=== PATIENT | male | born 1995 | race Caucasian/White ===

== ENCOUNTER 2018-08-22 16:24 | Emergency (ER) | payer MEDICAID, SELFPAY ==
[2018-08-22 16:31] VITALS: BP 154/96; PULSE 81; RESP 16; TEMP 37; O2SAT 95
--- NOTE | 2018-08-22 16:51 | DI.RAD_ITS ---
SYMPTOM/DIAGNOSIS: COUGH PA AND LATERAL CHEST: Comparison is made with 01/14/16. The heart is normal in size. The lungs are clear. The mediastinal structures and pleura appear intact. CONCLUSION: Normal chest.
--- NOTE | 2018-08-22 17:07 | ED.GENADUL_ITS ---
Discharge Plan Disposition Patient Disposition: HOME Discharge Details Chief Complaint: RespSymp Clinical Impression: Cough Primary Care Provider: NONE,NONE ED Provider: Ilan Farrell Home Meds and New Rx's Prescriptions: Continue Ibuprofen [Motrin Ib] 200 MG Tablet 600 mg PO Q6H 5 Days Qty: 60 RF: 0 Changed acetaminophen [Mapap Extra Strength] 500 MG tablet 500 mg PO Q6H 5 Days Qty: 60 RF: 0 Discontinued ibuprofen 200 MG tablet 200 mg PO DAILY RF: 0 Discharge Instructions Additional Instructions: Please drink plenty of fluids to stay hydrated and allow for plenty of rest. Please contact your primary care physician to arrange follow-up. Return to the ER for any worsening or new concerning symptoms. Stand Alone Forms: Work Release Medical Decision Making 22-year-old male here with cough, rhinorrhea and myalgias since yesterday. Saturating well in no respiratory distress. Lungs clear to auscultation. cxr reviewed and interpreted by me: No acute cardiopulmonary disease noted. Interpreted by radiology: negative. Suspect URI. Supportive care recommended. He was encouraged to drink plenty of fluids and offer plenty of rest. Patient was advised to return to the ER should have any worsening or new concerning symptom HPI General Mode of arrival: ambulatory . Date/Time Provider Initiated Documentation: 08/22/18 16:37 . Limitations to Documentation: no limitations . Information obtained by: patient . HPI Narrative: 22-year-old male presents with chief complaint of cough. Patient notes the cough started last night and has persisted today. Cough is moderate. Intermittently productive of clear phlegm. No associated fever. He does have associated body aches and runny nose. No shortness of breath. He does have some pleuritic chest discomfort that he notes is from the excessive coughing. There is some individuals at work with URI symptoms. Related Data Home Medications Medication Instructions Recorded Confirmed Ibuprofen [Motrin Ib] 600 mg PO Q6H 5 Days #60 tablet 06/07/18 08/22/18 acetaminophen [Mapap Extra 500 mg PO Q6H 5 Days #60 tab 08/22/18 08/22/18 Strength] Previous Rx's Medication Instructions Recorded Ibuprofen [Motrin Ib] 600 mg PO Q6H 5 Days #60 tablet 06/07/18 acetaminophen [Mapap Extra 500 mg PO Q6H 5 Days #60 tab 08/22/18 Strength] Allergies Allergy/AdvReac Type Severity Reaction Status Date / Time No Known Allergies Allergy Unverified 08/22/18 16:34 General Stated Complaint: RespSymp LEV: 4 Review of Systems Review of Systems All systems reviewed & are unremarkable except as noted in HPI and below ENT Reports nasal congestion Cardiovascular Denies dyspnea Respiratory Reports cough and Denies dyspnea Musculoskeletal Reports myalgias PFSH Social History Smoking/Tobacco Use Status: Former Tobacco Use Exam Const General: cooperative, no acute distress, well developed and acute distress Orientation: alert and awake Limitations: mental status not altered HENMT Head: normal to inspection and normocephalic Face and sinus: other Mouth: moist mucous membranes Throat: posterior oropharynx normal, uvula midline, posterior oropharynx abnormal and no uvular edema Eyes General: appearance normal, both eyes and all related structures Conjunctivae: conjunctivae normal EOM: EOM intact bilaterally Neck Neck: trachea midline, supple and no lymphadenopathy noted Resp Effort & Inspection: normal respiratory effort, cough, not labored and no respiratory distress Auscultation: clear to auscultation bilaterally, no rales, no rhonchi and no wheezes Cardio Jugular venous pressure: no JVD Rate: regular rate Rhythm: regular rhythm Heart Sounds: S1 normal, S2 normal, no gallops, no murmurs and no rubs GI Palpation: soft and nontender Skin General skin exam: no rashes or lesions noted and dry skin Other: warm Neuro General: alert, awake and oriented x3 Extrem General: clubbing, cyanosis or edema noted Psych Appearance: grossly normal Affect: normal affect Course Vital Signs Temperature 37 C 08/22/18 16:31 Pulse 81 08/22/18 16:31 Respiratory Rate 16 08/22/18 16:31 Blood Pressure 154/96 H 08/22/18 16:31 Pulse Oximetry 95 08/22/18 16:31 Temperature 37 C 08/22/18 16:31 Temperature Source Skin 08/22/18 16:31 Pulse 81 08/22/18 16:31 Respiratory Rate 16 08/22/18 16:31 Respiratory Effort 08/22/18 16:34 Blood Pressure 154/96 H 08/22/18 16:31 Pulse Oximetry 95 08/22/18 16:31 Oxygen Delivery Method Room Air 08/22/18 16:31 Oxygen Flow Rate 0 08/22/18 16:31 Pain Level 8 08/22/18 16:31
--- NOTE | 2018-08-22 17:14 | DI.VRAD_ITS ---
EXAM: XR Chest, 2 Views CLINICAL HISTORY: 22 years old, male; Signs and symptoms; Cough TECHNIQUE: Frontal and lateral views of the chest. COMPARISON: CR CHEST 2 VIEWS PA,LAT 12/21/2012 12:38 PM FINDINGS: Lungs: Unremarkable. No consolidation. Pleural space: Unremarkable. No pneumothorax. Heart: Unremarkable. No cardiomegaly. Mediastinum: Unremarkable. Bones/joints: Unremarkable. IMPRESSION: Normal chest x-rays. Dictated and Authenticated by: Geronimo Glass MD. Ordering:TIMOTEO CONKLIN MD
== END 2018-08-22 17:30 | disposition home or self-care (01) ==
PROVIDERS: Emergency Provider Student in an Organized Health Care Education/Training Program
DX: R05 Cough (principal); M79.1 Myalgia
CPT/HCPCS: 99283; 71046

== ENCOUNTER 2018-09-04 21:15 | Emergency (ER) | payer MEDICAID, SELFPAY ==
[2018-09-04 21:20] VITALS: BP 118/65; PULSE 84; RESP 16; TEMP 36.3; O2SAT 97
[2018-09-04 23:30] VITALS: BP 118/65; PULSE 84; RESP 16; TEMP 36.3; O2SAT 97
--- NOTE | 2018-09-05 01:46 | W.ED.GENAD ---
Discharge Plan Disposition Patient Disposition: HOME Condition: Good Discharge Details Chief Complaint: EarProblem Clinical Impression: Cerumen impaction, Bilateral acute otitis media Primary Care Provider: Elizabeth Green ED Provider: Niraj Davis Home Meds and New Rx's Prescriptions: New amoxicillin 875 mg tablet 875 mg PO BID Qty: 20 RF: 0 No Action Ibuprofen [Motrin Ib] 200 MG Tablet 600 mg PO Q6H 5 Days Qty: 60 RF: 0 acetaminophen [Mapap Extra Strength] 500 MG tablet 500 mg PO Q6H 5 Days Qty: 60 RF: 0 Discharge Instructions Instructions: Cerumen Impaction (ED), Otitis Media (ED) Additional Instructions: Please take the antibiotic as directed. If you notice any worsening of your symptoms, or any new symptoms such as vomiting, diarrhea, fever, chills, shortness of breath, chest pain, numbness, weakness, or fainting , please return immediately to the emergency department for reevaluation. Please follow up with your primary care provider as soon as possible for reassessment and reevaluation. As always, it was a pleasure participating in your medical care today. Referrals: Elizabeth Green [Primary Care Provider] - Discharge Data Discharge Date/Time-TO BE ENTERED AT DEPARTURE: 09/04/18 22:37 Medical Decision Making This is a 22-year-old male with no medical history who presents today for evaluation of bilateral ear pain and decreased hearing. Physical exam demonstrates bilateral cerumen impaction. Cerumen was removed bilaterally with gentle suction device. After removal of the cerumen there was evidence of bilateral otitis media. No evidence of rupture or drainage. Patient will be started on amoxicillin. He has significant improvement of his symptoms after the removal of the cerumen. Patient will be discharged home with antibiotic. We discussed red flags for which to return the patient I have extensively reviewed the treatment plan and discharge instructions with the patient. I have addressed all patient concerns at this time. The patient was made aware of what symptoms to monitor for that would warrant a return to the emergency department. Discussed the plan with the patient, they demonstrate verbal understanding and agreement with our assessment and plan at this time. HPI General Date/Time Provider Initiated Documentation: 09/04/18 22:20. HPI Narrative: This is a 22-year-old male with no significant past medical history who presents today for evaluation of ear pain. The patient states that over the last few days he has noticed moderate pain in his urine difficulty hearing. He tried to use Q-tips to get out any wax but was unable to. He presents today for evaluation of this. He denies any fevers, chills, chest pain or shortness of breath. He does complain of congestion, runny nose, and mild upper respiratory symptoms over the last few days which have resolved but still have persistent ear symptoms. He denies any recent surgeries or trauma to his ear. He has no other complaints at this time. Related Data Home Medications Medication Instructions Recorded Confirmed Ibuprofen [Motrin Ib] 600 mg PO Q6H 5 Days #60 tablet 06/07/18 08/22/18 acetaminophen [Mapap Extra 500 mg PO Q6H 5 Days #60 tab 08/22/18 08/22/18 Strength] amoxicillin 875 mg PO BID #20 tab 09/04/18 Previous Rx's Medication Instructions Recorded Ibuprofen [Motrin Ib] 600 mg PO Q6H 5 Days #60 tablet 06/07/18 acetaminophen [Mapap Extra 500 mg PO Q6H 5 Days #60 tab 08/22/18 Strength] amoxicillin 875 mg PO BID #20 tab 09/04/18 Allergies Allergy/AdvReac Type Severity Reaction Status Date / Time No Known Allergies Allergy Unverified 08/22/18 16:34 General Stated Complaint: EarProblem LEV: 4 Review of Systems Review of Systems All systems reviewed & are unremarkable except as noted in HPI and below PFSH Social History Smoking/Tobacco Use Status: Former Tobacco Use Exam Narrative Exam Narrative: 1.Const: Well-nourished, Well-developed, appearing stated age 2.Eyes: PERRL, no conjunctival injection, and symmetrical lids. 3.ENT: Atraumatic external nose and ears. Moist MM. Neck: Symmetric, trachea midline, No thyromegaly. Patient demonstrates notable cerumen impaction in each ear bilaterally. After cerumen was eventually removed there was evidence of otitis media bilaterally as well. No evidence of rupture. No signs of purulent drainage. Erythema and some purulent fluid noted posterior to the tympanic membranes bilaterally 4.CVS: +S1/S2, No murmurs or gallops. Peripheral pulses 2+ and equal in all extremities. Brisk capillary refill in all extremities. 5.RESP: Unlabored respiratory effort. Clear to auscultation bilaterally. No wheezes rales or rhonchi 6.GI: Soft, Nontender/Nondistended, No hepatosplenomegaly. No guarding or rebound. 7.MSK: Normocephalic/Atraumatic, Extremities w/o deformity or ttp No cyanosis or clubbing, Normal movement of all extremities 8.Skin: Warm, Dry. No rashes or lesions. 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 Sensation grossly intact, no focal neurologic deficits. 10.Psych: (AAO) x3. Appropriate mood and affect Course Vital Signs Temperature 36.3 C L 09/04/18 21:20 Pulse 84 09/04/18 21:20 Respiratory Rate 16 09/04/18 21:20 Blood Pressure 118/65 09/04/18 21:20 Pulse Oximetry 97 09/04/18 21:20 Temperature 36.3 C L 09/04/18 21:20 Pulse 84 09/04/18 21:20 Respiratory Rate 16 09/04/18 21:20 Respiratory Effort Non-Labored 09/04/18 21:43 Blood Pressure 118/65 09/04/18 21:20 Blood Pressure Position Sitting 09/04/18 21:20 Pulse Oximetry 97 09/04/18 21:20 Oxygen Delivery Method Room Air 09/04/18 21:20 Oxygen Flow Rate 0 09/04/18 21:20 Pain Level 0 09/04/18 21:44
== END 2018-09-04 22:37 | disposition home or self-care (01) ==
PROVIDERS: Emergency Provider Student in an Organized Health Care Education/Training Program; PCP Nurse Practitioner Family
DX: H66.93 Otitis media, unspecified, bilateral (principal); H61.23 Impacted cerumen, bilateral
CPT/HCPCS: 99283

== ENCOUNTER 2018-12-17 13:41 | Emergency (ER) | payer MEDICAID, SELFPAY ==
[2018-12-17 13:47] VITALS: BP 148/99; PULSE 99; RESP 18; TEMP 37.5; O2SAT 95
--- NOTE | 2018-12-17 14:33 | ED.GENADUL_ITS ---
Discharge Plan Disposition Patient Disposition: HOME Condition: Stable Discharge Details Chief Complaint: RespSymp Clinical Impression: URI (upper respiratory infection) Primary Care Provider: Elizabeth Green ED Provider: Xu Greer Home Meds and New Rx's Prescriptions: New benzonatate 200 mg capsule 200 mg PO TID PRN (Reason: cough) Qty: 30 RF: 0 Continued Excedrin Extra Strength 250-250-65 mg Tablet 2 tab PO Q6H PRNRF: 0 Ibuprofen [Motrin Ib] 200 MG Tablet 600 mg PO Q6H 5 Days Qty: 60 RF: 0 acetaminophen [Mapap Extra Strength] 500 MG tablet 500 mg PO Q6H 5 Days Qty: 60 RF: 0 Discharge Instructions Instructions: Upper Respiratory Infection (ED) Additional Instructions: Continue well-hydrated and get plenty of rest over the weekend. If you develop a new fever or have any significant worsening of symptoms feel free to return the emergency department or follow-up with your primary care provider for reassessment. You may continue to take ejii-ncf-[id number] pain medication along with cough and cold medication for your symptoms Stand Alone Forms: Work Release Referrals: Elizabeth Green [Primary Care Provider] - (As needed for reassessment or if not improving) Discharge Data Discharge Date/Time-TO BE ENTERED AT DEPARTURE: 12/17/18 14:51 Medical Decision Making Patient presenting the emergency department for flulike symptoms for the past 4 days. Patient has not been using jkqy-tua-[id number] medications for his symptoms. Patient just was concerned due to the persistence of his cold-like illness. Patient denies any nausea vomiting, nuchal rigidity, dyspnea, or difficulty breathing. Patient has no signs of meningitis, peritonsillar retropharyngeal abscess, pneumonia, emergent systemic illness. Patient's exam is consistent w ith viral URI and no worrisome findings noted. Given that patient has had symptoms greater than 48 hours I do not see benefit of testing for influenza given that he is young healthy and otherwise stable nontoxic in appearance. Patient was prescribed Tessalon Perles and encouraged to use [id number] symptomatic medications. Patient was given a work note and informed he should rest stay well-hydrated and follow-up with primary care provider or return for any significant worsening symptoms. After discussion of diagnosis and plan of care patient has no further needs, questions, or concerns and states clear understanding to return to the emergency department for any worsening symptoms. HPI General Mode of arrival: ambulatory . Date/Time Provider Initiated Documentation: 12/17/18 14:16 . Limitations to Documentation: no limitations . Information obtained by: patient . History of Present Illness 23 year old M presents to the emergency department with the chief complaint of Flulike illness, described as moderate, with intensity rated at 8. Quality is described as aching, and is localized to the head (Along with generalized body). Patient started experiencing this day(s) (4) and it has been constant. No relieving factors improve symptom(s), No exacerbating factors reported . Patient did receive the following treatments prior to arrival, none Related Data Home Medications Medication Instructions Recorded Confirmed Ibuprofen [Motrin Ib] 600 mg PO Q6H 5 Days #60 tablet 06/07/18 12/17/18 acetaminophen [Mapap Extra 500 mg PO Q6H 5 Days #60 tab 08/22/18 12/17/18 Strength] Excedrin Extra Strength 2 tab PO Q6H PRN 12/17/18 12/17/18 benzonatate 200 mg PO TID PRN #30 cap 12/17/18 Previous Rx's Medication Instructions Recorded Ibuprofen [Motrin Ib] 600 mg PO Q6H 5 Days #60 tablet 06/07/18 acetaminophen [Mapap Extra 500 mg PO Q6H 5 Days #60 tab 08/22/18 Strength] benzonatate 200 mg PO TID PRN #30 cap 12/17/18 Allergies Allergy/AdvReac Type Severity Reaction Status Date / Time No Known Allergies Allergy Unverified 12/17/18 13:53 General Stated Complaint: RespSymp LEV: 3 Review of Systems Constitutional Reports chills, Reports difficulty sleeping (Due to coughing), Reports fatigue, Reports fever(s), Reports headache(s) and Reports malaise ENT Reports as per HPI, Reports otalgia, Reports headache(s), Denies hoarseness, Reports nasal congestion, Reports sinus pressure and Reports sore throat Cardiovascular Denies dyspnea Respiratory Reports cough, Denies hemoptysis, Denies pain with cough, Denies dyspnea and Denies wheezing Gastrointestinal Reports diarrhea, Denies nausea and Denies vomiting Musculoskeletal Denies joint swelling Integumentary/Breasts Denies rash Neurologic Reports headache(s) Endocrine Reports fatigue Allergic/Immunologic Denies wheezing [facility] Social History Smoking/Tobacco Use Status: Former Tobacco Use Exam Const General: cooperative, comfortable and no acute distress Orientation: alert, awake and oriented x3 HENMT Head: normal to inspection Ears: hearing grossly normal bilaterally, external ears normal and TM's normal b ilaterally Face and sinus: normal facial exam, sinuses nontender and face symmetric Mouth: oral mucosae normal Throat: posterior oropharynx normal, uvula midline and abnormal tonsil bilaterally erythema (mild); no exudates and no hypertrophy Eyes General: appearance normal, both eyes and all related structures Conjunctivae: conjunctivae normal Sclera: sclerae normal Neck Neck: normal visual inspection, full ROM, no lymphadenopathy, meningismus present and no JVD Resp Effort & Inspection: normal respiratory effort, able to speak in complete sentences, no audible wheezes, cough Quality of cough: actively coughing and not labored Auscultation: clear to auscultation bilaterally Cardio Rate: regular rate Rhythm: regular rhythm Heart Sounds: S1 normal and S2 normal Skin General skin exam: no rashes or lesions noted and dry skin Rashes: no rashes Neuro General: alert, awake, oriented x3 and gait normal Course Vital Signs Temperature 37.5 C 12/17/18 13:47 Pulse 99 H 12/17/18 13:47 Respiratory Rate 18 12/17/18 13:47 Blood Pressure 148/99 H 12/17/18 13:47 Pulse Oximetry 95 12/17/18 13:47 Temperature 37.5 C 12/17/18 13:47 Temperature Source Oral 12/17/18 13:47 Pulse 99 H 12/17/18 13:47 Respiratory Rate 18 12/17/18 13:47 Respiratory Effort Non-Labored 12/17/18 13:52 Blood Pressure 148/99 H 12/17/18 13:47 Blood Pressure Position Sitting 12/17/18 13:47 Pulse Oximetry 95 12/17/18 13:47 Oxygen Delivery Method Room Air 12/17/18 13:47 Oxygen Flow Rate 0 12/17/18 13:47 Pain Level 9 12/17/18 13:47
== END 2018-12-17 14:51 | disposition home or self-care (01) ==
LOC: ER 12-18 00:16
PROVIDERS: Emergency Provider Nurse Practitioner Family; PCP Nurse Practitioner Family
DX: J06.9 Acute upper respiratory infection, unspecified (principal); Z87.891 Personal history of nicotine dependence
CPT/HCPCS: 99283

== ENCOUNTER 2021-06-06 11:32 | Emergency (ER) | payer SELFPAY ==
[2021-06-06 11:41] VITALS: BP 134/79; PULSE 65; TEMP 36.7; O2SAT 96
[2021-06-06] MEDS: Carbamide Peroxide 15 ML BTL AU (12:19)
--- NOTE | 2021-06-06 12:59 | W.ED.GENAD ---
Discharge Plan Disposition Patient Disposition: HOME Condition: Stable Discharge Details Clinical Impression: Otitis media, Impacted cerumen, right ear Primary Care Provider: Elizabeth Green ED Provider: Prosper Seth Home Meds and New Rx's Prescriptions: New amoxicillin 875 mg tablet 875 mg PO BID Qty: 20 RF: 0 Continued Excedrin Extra Strength 250-250-65 mg Tablet 2 tab PO Q6H PRNRF: 0 Ibuprofen [Motrin Ib] 200 MG Tablet 600 mg PO Q6H 5 Days Qty: 60 RF: 0 acetaminophen [Mapap Extra Strength] 500 MG tablet 500 mg PO Q6H 5 Days Qty: 60 RF: 0 Discharge Instructions Instructions: Ear Infection (ED) Additional Instructions: Amoxicillin as directed. Acjs-mam-ahfseux eardrops to the prevent earwax buildup as directed. [id number]-[id number] Tylenol and/or Motrin as directed for discomfort. Please watch for new or worsening symptoms and return to the ER for any concerns. Medical Decision Making 25-year-old gentleman presents with dull ear pressure on the right side, hearing loss, concern for excessive wax. Initial evaluation revealed cerumen in the right ear canal, unable to visualize the TM. Please see the procedure documentation, wax was removed without difficulty. Upon reevaluation his TM actually appears consistent with otitis media. I would expect there to be mild irritation after the irrigation but this is more consistent with an acute otitis media. Will give a single dose of amoxicillin here, provide a prescription, we discussed earwax routine at home to help decrease buildup, he will use [id number] Tylenol and/or Motrin as directed for discomfort. Patient is comfortable this plan and has no additional questions or concerns Medical Records Medical records reviewed: Yes I reviewed the patient's medical records. HPI General Mode of arrival: ambulatory. Date/Time Provider Initiated Documentation: 06/06/21 11:47. Limitations to Documentation: no limitations. Information obtained by: patient. HPI Narrative: This is a 25-year-old male, denies any significant past medical history, presenting to the ER stating that he woke up this morning with difficulty hearing from his right ear. He reports that he has had issues with wax buildup in both of his ears in the past, felt as though his ear was full yesterday, and before bed and upon waking this morning he did use eardrops in his right ear. He reports that his ear feels full and achy but not necessarily painful, denies any discharge. Denies fever, any symptoms in his left ear, sore throat, nasal congestion with cough, neck pain. Patient has no additional concerns or questions at this time. Related Data Home Medications Medication Instructions Recorded Confirmed Ibuprofen [Motrin Ib] 600 mg PO Q6H 5 Days #60 tablet 06/07/18 06/06/21 acetaminophen [Mapap Extra 500 mg PO Q6H 5 Days #60 tab 08/22/18 06/06/21 Strength] Excedrin Extra Strength 2 tab PO Q6H PRN 12/17/18 06/06/21 amoxicillin 875 mg PO BID #20 tab 06/06/21 Previous Rx's Medication Instructions Recorded Ibuprofen [Motrin Ib] 600 mg PO Q6H 5 Days #60 tablet 06/07/18 acetaminophen [Mapap Extra 500 mg PO Q6H 5 Days #60 tab 08/22/18 Strength] amoxicillin 875 mg PO BID #20 tab 06/06/21 Allergies Allergy/AdvReac Type Severity Reaction Status Date / Time No Known Allergies Allergy Unverified 06/06/21 11:45 General Stated Complaint: EarProblem LEV: 4 Review of Systems Constitutional Constitutional: Denies fever(s) and Denies headache(s) ENT Ears, Nose, Mouth, and Throat: Denies headache(s), Denies mouth pain and Denies sore throat Neurologic Neurologic: Denies headache(s) [facility] Social History Smoking/Tobacco Use Status: Former Tobacco Use Smoking risk assessment performed?: Yes Alcohol Intake: never Drug use: Occasionally Substance use type: marijuana Do you feel safe at home: Yes Do you feel safe in your relationship?: Yes Exam Const General: cooperative, healthy appearing, comfortable and no acute distress Orientation: alert and awake [facility] Head: normal to inspection, normocephalic and atraumatic Ears: TM normal on the left, mastoids normal, no periauricular adenopathy, EAC abnormal excessive cerumen on the right and unable to visualize TM on the right Face and sinus: normal facial exam Mouth: moist mucous membranes Throat: posterior oropharynx normal Eyes General: appearance normal, both eyes and all related structures Conjunctivae: conjunctivae normal Neck Neck: normal visual inspection, full ROM, no lymphadenopathy, trachea midline, supple and nontender Resp Effort & Inspection: normal respiratory effort and able to speak in complete sentences Skin General skin exam: no rashes or lesions noted Neuro General: patient alert, patient awake, moves all extremities and no focal motor deficits Sensory Exam: no sensory deficits noted Psych Appearance: grossly normal Mental Status: mental status grossly normal Course Vital Signs Vital signs: Vital Signs Temperature 36.7 C 06/06/21 11:41 Pulse 65 06/06/21 11:41 Blood Pressure 134/79 06/06/21 11:41 Pulse Oximetry 96 06/06/21 11:41 Temperature 36.7 C 06/06/21 11:41 Temperature Source Temporal Artery Scan 06/06/21 11:41 Pulse 65 06/06/21 11:41 Respiratory Effort Non-Labored 06/06/21 11:44 Blood Pressure 134/79 06/06/21 11:41 Blood Pressure Position Sitting 06/06/21 11:41 Pulse Oximetry 96 06/06/21 11:41 Oxygen Delivery Method Room Air 06/06/21 11:41 Oxygen Flow Rate 0 06/06/21 11:41 Pain Level 3 06/06/21 11:46 Procedures Ear Wax Removal Right Ear: Cerumenolytic Used: Cerumenex Results: Re-examined: cerumen removed completely TM Visible: TM(s) erythematous (Loss of landmarks, mild bulging) and perforation in right ear Ear Canal: atraumatic Patient Tolerated Procedure: well Complications: no problems Technique: ear canal irrigated
[2021-06-06] MEDS: Amoxicillin 875 MG TAB PO (13:30)
[2021-06-06 13:38] VITALS: BP 145/71; PULSE 58; RESP 18; TEMP 36.7; O2SAT 97
== END 2021-06-06 13:58 | disposition home or self-care (01) ==
PROVIDERS: Emergency Provider Physician Assistant; PCP Nurse Practitioner Family
DX: H66.91 Otitis media, unspecified, right ear (principal); H61.21 Impacted cerumen, right ear; H72.91 Unspecified perforation of tympanic membrane, right ear
CPT/HCPCS: 99283

== ENCOUNTER 2022-01-24 13:35 | Emergency (ER) | payer SELFPAY ==
--- NOTE | 2022-01-24 14:48 | ED.GENADUL_ITS ---
Discharge Plan Disposition Patient Disposition: HOME Condition: Improving Discharge Details Clinical Impression: Abdominal pain, vomiting, and diarrhea Primary Care Provider: Elizabeth Green ED Provider: Cassandra Mendoza Home Meds and New Rx's Prescriptions: New famotidine [Pepcid] 20 mg tablet 20 mg PO DAILY Qty: 14 0RF dicyclomine 20 mg tablet 20 mg PO TID PRN (Reason: abdominal pain) Qty: 10 0RF ondansetron 4 mg tablet,disintegrating 4 mg PO TID PRN (Reason: nausea and vomiting) Qty: 6 0RF Discharge Instructions Instructions: Acute Nausea and Vomiting (ED), Acute Diarrhea (ED), Abdominal Pain (ED) Additional Instructions: Your lab work and imaging today is reassuring and shows no evidence of acute concerning or significant findings. Your presentation may be due to an acute viral illness which may be self-limiting and may resolve in the next 1 to 2 days. Drink plenty of fluids and get plenty of rest. Alternate tylenol and motrin as needed and directed for pain. Take the Zofran as needed and directed for nausea and vomiting. Take the Pepcid once daily for the next 2 weeks. Take the Bentyl as needed and directed for abdominal pain. Follow-up with your primary care doctor in 1 week. Return to the emergency department with any worsening or new concerning symptoms. Stand Alone Forms: Work Release Discharge Data Discharge Date/Time-TO BE ENTERED AT DEPARTURE: 01/24/22 18:26 Discharge Physician: Cassandra Mendoza Medical Decision Making 26-year-old male with a history of morbid obesity presents with vomiting, diarrhea and abdominal pain since yesterday, worse today. Blood pressure and heart rate elevated. He is afebrile. He appears uncomfortable and tearful while palpating his abdomen but he is nontoxic- appearing. His abdomen is soft and diffusely tender, but worse in the right lower quadrant, left side of his abdomen as well as upper quadrants. Differential diagnosis includes gastroenteritis, colitis, gastritis, Covid, appendicitis, biliary colic, cholecystitis, pancreatitis, etc. We will place an IV, bolus IV fluids, screening labs, gallbladder ultrasound, CT abdomen/pelvis considering his significant pain and will give a dose of IV Toradol and Zofran and reassess. Labs and imaging reviewed. White blood cell count 13. Hemoglobin 17, may be hemoconcentration secondary to dehydration. Normal electrolytes. Lipase normal. Ultrasound and CT negative for acute findings. Patient informed that his imaging noted hepatic steatosis which may be diet related and to limit high trans fat/cholesterol foods as much as possible. He denies any significant alcohol use. Patient reassessed and he feels much better and was able to take p.o. and feels comfortable going home. He was given Zofran to go and prescriptions for Bentyl, Pepcid and Zofran provided. Advised to follow up with the primary care doctor for re-evaluation. Usual and customary return precautions given prior to discharge. Medical Records Medical records reviewed: Yes I reviewed the patient's medical records. Imaging Data Radiologic Study: Radiologist's impression: CT ABDOMEN ? PELVIS W CLINICAL HISTORY: ? diffuse abd pain, worse in RLQ/LLQ/epigastric. ? TECHNIQUE:? Imaging Protocol: Axial computed tomography images with coronal and sagittal reformatted images were created and reviewed CONTRAST MATERIAL:? Intravenous: Omnipaque 100cc Oral: None COMPARISON:? US US ABDOMEN LIMITED from 01/24/2022 FINDINGS: VISUALIZED LUNG BASES: No nodules nor pleural effusions evident.? ABDOMEN: There is no ascites. LIVER: Liver is hypodense implying steatosis.? However, there are no discrete focal hepatic lesions nor dilatation of intrahepatic ducts.? GALLBLADDER/BILIARY: No obvious gallbladder pathology.? CBD is not dilated. PANCREAS: No evidence of pancreatic mass nor dilatation of the pancreatic duct.? SPLEEN: Spleen size upper normal.? No splenic lesions.? Splenic and portal veins are patent. ADRENALS: There are no significant adrenal masses. KIDNEYS:No cysts evident.? No solid renal masses.? No calculi nor hydronephrosis.. ABDOMINAL AORTA: Abdominal aorta is not enlarged. LYMPH NODES:There is no retroperitoneal nor paraaortic adenopathy. ABDOMINAL WALL: No evidence of significant anterior abdominal wall nor inguinal hernia. GI: There is no evidence of bowel obstruction, free air, nor abscess. PELVIS:? GI: No evidence of appendicitis.No evidence of sigmoid diverticulitis. LYMPH NODES: There is no intrapelvic nor inguinal adenopathy. REPRODUCTIVE: Prostate size normal.? Seminal vesicles unremarkable. URINARY BLADDER: Unremarkable. OSSEOUS: No significant osseous lesions. IMPRESSION: 1. No acute findings in the abdomen and pelvis. 2. Hepatic steatosis but no discrete focal hepatic lesions. 3. No evidence of appendicitis, diverticulitis, nor cholecystitis. 4. No bowel obstruction.? No ascites. US ABDOMEN LIMITED CLINICAL HISTORY:? RUQ/LUQ/epigastric pain, obese, r/o cholecystitis TECHNIQUE:? Ultrasound abdomen performed using standard protocol. COMPARISON:? CT scan from today FINDINGS: There is no ascites evident. LIVER: Liver is hyperechoic indicating steatosis.? No obvious discrete focal hepatic lesions evident. GALLBLADDER/BILIARY: There are no gallstones. No gallbladder wall edema nor pericholecystic fluid. The common hepatic duct isnot dilated, measuring 5mm at the level of lamberto hepatis. PANCREAS: There is no evidence of pancreatic mass nor dilatation of the pancreatic duct. RIGHT KIDNEY:No evidence of solid mass, calculus, nor hydronephrosis. No cortical cysts evident. ABDOMINAL AORTA AND IVC: Visualized portions exhibit normal caliber. IMPRESSION: 1.? No evidence of cholelithiasis nor dilatation of the biliary tree.? 2.? Hepatic steatosis.? Correlation with appropriate blood blood work recommended. 3.? There is no ascites. Lab Data Lab results reviewed: Yes I reviewed the patient's lab results. Labs: Laboratory Tests Range/Units 01/24/22 01/24/22 15:24 15:24 WBC (4.4-10.8) 10^3/uL 13.28 H RBC (4.36-5.78) 10^6/uL 6.12 H Hgb (13.5-17.5) g/dL 17.6 H Hct (40.0-50.0) % 50.8 H MCV (80-95) fL 83.0 MCH (27.0-33.0) pg 28.8 MCHC (32.0-36.0) % 34.6 RDW (11.8-14.1) % 12.0 Plt Count (130-400) 10^3/uL 304 MPV (8.0-11.0) fL 10.0 Immature Gran % 0.2 Neutrophils % 86.3 Lymphocytes % 5.7 Monocytes % 5.6 Eosinophils % 2.0 Basophils % 0.2 Nucleated RBC % % 0 Absolute Neutrophils (1.2-6.7) 10^3/uL 11.46 H Absolute Lymphocytes (1.2-3.4) 10^3/uL 0.76 L Absolute Monocytes (0.1-0.8) 10^3/uL 0.74 Absolute Eosinophils (0.0-0.7) 10^3/uL 0.27 Absolute Basophils (0.0-0.2) 10^3/uL 0.03 Sodium (136-145) mmol/L 141 Potassium (3.5-5.1) mmol/L 4.1 Chloride (98-107) mmol/L 104 Carbon Dioxide (21.0-32.0) mmol/L 26.8 Anion Gap (3-11) mmol/L 10.2 BUN (7-18) mg/dL 13 Creatinine (0.70-1.30) mg/dL 0.8 Estimated GFR/1.73 m2 (mL/min/1.73m2) >= 60.00 Glucose (74-106) mg/dL 118 H Calcium (8.5-10.1) mg/dL 9.1 Total Bilirubin (0.2-1.0) mg/dL 0.6 AST (15-37) U/L 30 ALT (16-63) U/L 56 Alkaline Phosphatase (46-116) U/L 122 H Total Protein (6.4-8.2) g/dL 8.6 H Albumin (3.4-5.0) g/dL 4.2 Lipase (73-393) U/L 54 HPI General Mode of arrival: ambulatory . Date/Time Provider Initiated Documentation: 01/24/22 14:18 . Limitations to Documentation: no limitations . Information obtained by: patient . HPI Narrative: Patient is a 26-year-old male with a history of morbid obesity presents with abdominal pain, vomiting and diarrhea since yesterday, worse today. Patient states his pain feels like pressure throughout his abdomen, but without radiation or known aggravating or alleviating factors. Patient states his pain was intermittent yesterday and has been constant since this morning. He states the pain is worse in the left side of his abdomen. He has had diminished appetite today and has only drank Coke. He states his last meal was a peanut butter and jelly sandwich last night. He states he vomited 3 times today which was initially yellow and now clear. He states he has had at least 10 episodes of watery brown and loose stool but denies any hematemesis or hematochezia. He admits to loss of sense of smell but denies any loss of sense of taste. He does admit to a mild dry cough. He states he is fully vaccinated for COVID including a booster and denies any known exposure to coronavirus. He denies any known fever, chest pain, difficulty breathing, urinary symptoms. Related Data Home Medications Medication Instructions Recorded Confirmed dicyclomine 20 mg tablet 20 mg PO TID PRN #10 tab 01/24/22 famotidine 20 mg tablet (Pepcid) 20 mg PO DAILY #14 tab 01/24/22 ondansetron 4 mg disintegrating 4 mg PO TID PRN #6 tab 01/24/22 tablet Previous Rx's Medication Instructions Recorded dicyclomine 20 mg tablet 20 mg PO TID PRN #10 tab 01/24/22 famotidine 20 mg tablet (Pepcid) 20 mg PO DAILY #14 tab 01/24/22 ondansetron 4 mg disintegrating 4 mg PO TID PRN #6 tab 01/24/22 tablet Allergies Allergy/AdvReac Type Severity Reaction Status Date / Time No Known Allergies Allergy Unverified 01/24/22 14:51 General Stated Complaint: Abd Prob LEV: 4 Review of Systems All systems reviewed & are unremarkable except as noted in HPI and below Constitutional Constitutional: Reports as per HPI, Denies chills, Denies excessive sweating, Denies fatigue, Denies fever(s) and Reports poor appetite Eyes Eyes: Denies blurry vision ENT Ears, Nose, Mouth, and Throat: Denies dizziness, Denies sore throat and Denies t hroat swelling Cardiovascular Cardiovascular: Denies chest pain and Denies dyspnea Respiratory Respiratory: Reports cough and Denies dyspnea Gastrointestinal Gastrointestinal: Reports abdominal pain, Reports diarrhea and Reports vomiting Genitourinary Genitourinary: Denies hematuria and Denies dysuria Musculoskeletal Musculoskeletal: Denies back pain and Denies numbness Integumentary/Breasts Skin/Breast: Denies lesions and Denies rash Neurologic Neurologic: Denies behavioral changes, Denies confusion, Denies dizziness, Denies localized weakness and Denies numbness Psychiatric Psychiatric: Denies behavioral changes, Denies confusion and Denies depression Endocrine Endocrine: Denies excessive sweating and Denies fatigue Hematologic/Lymphatic Hematologic/Lymphatic: Denies easy bruising and Denies lymphadenopathy Allergic/Immunologic Allergic/Immunologic: Denies throat swelling PFSH All Active Problems (Updated 01/24/22 @ 18:09 by Cassandra Mendoza DO) Otitis media (Acute) Impacted cerumen, right ear (Acute) Abdominal pain, vomiting, and diarrhea (Acute) Social History Smoking/Tobacco Use Status: Former Tobacco Use Smoking risk assessment performed?: Yes Alcohol Intake: never Drug use: Daily Substance use type: marijuana Do you feel safe at home: Yes Do you feel safe in your relationship?: Yes Exam Const General: cooperative (but tearful throughout exam, worse when palpating abdomen) and uncomfortable Nutritional Appearance: obese morbidly obese Orientation: alert, awake and oriented x3 HENMT Head: normal to inspection Ears: hearing grossly normal bilaterally and external ears normal Eyes General: appearance normal, both eyes and all related structures Eyelids: eyelids normal Pupils: PERRL EOM: EOM intact bilaterally Neck Neck: normal visual inspection Lymphatic: no lymphadenopathy noted Resp Effort & Inspection: normal respiratory effort and able to speak in complete sentences Auscultation: clear to auscultation bilaterally Cardio Rate: regular rate Rhythm: regular rhythm GI Inspection: normal to inspection and obesity Palpation: soft, not firm, no guarding, no hepatosplenomegaly, no masses and tender (diffuse, worse in L side of abdomen>RLQ>epigastric>RUQ) Auscultation: hypoactive bowel sounds Skin General skin exam: no rashes or lesions noted Neuro General: patient alert and patient awake Cognition: normal cognition Speech: speech normal Gait: normal gait Motor: muscle tone normal throughout Sensory Exam: no sensory deficits noted Extrem General: normal to inspection, full ROM and no edema Psych Appearance: grossly normal Mental Status: mental status grossly normal Speech and Movement: speech and movement normal Affect: normal affect Thought Process: normal
[2022-01-24 14:49] VITALS: BP 152/92; PULSE 95; RESP 14; TEMP 36.1; O2SAT 95
--- NOTE | 2022-01-24 15:00 | DI.US_ITS ---
Exam(s) US ABDOMEN LIMITED EXAM: US ABDOMEN LIMITED CLINICAL HISTORY: RUQ/LUQ/epigastric pain, obese, r/o cholecystitis TECHNIQUE: Ultrasound abdomen performed using standard protocol. COMPARISON: CT scan from today FINDINGS: There is no ascites evident. LIVER: Liver is hyperechoic indicating steatosis. No obvious discrete focal hepatic lesions evident. GALLBLADDER/BILIARY: There are no gallstones. No gallbladder wall edema nor pericholecystic fluid. The common hepatic duct isnot dilated, measuring 5mm at the level of lamberto hepatis. PANCREAS: There is no evidence of pancreatic mass nor dilatation of the pancreatic duct. RIGHT KIDNEY:No evidence of solid mass, calculus, nor hydronephrosis. No cortical cysts evident. ABDOMINAL AORTA AND IVC: Visualized portions exhibit normal caliber. IMPRESSION: 1. No evidence of cholelithiasis nor dilatation of the biliary tree. 2. Hepatic steatosis. Correlation with appropriate blood blood work recommended. 3. There is no ascites. DATA REPOSITORY:
[2022-01-24 15:31] LABS: Abs Immature Grans 0.03 10^3/uL (0.0-0.06); Absolute Basophil Count 0.03 10^3/uL (0.0-0.2); Absolute Eosinophil Count 0.27 10^3/uL (0.0-0.7); Absolute Lymphocyte Count 0.76 10^3/uL (1.2-3.4); Absolute Monocyte Count 0.74 10^3/uL (0.1-0.8); Absolute Neutrophil Count 11.46 10^3/uL (1.2-6.7); Basophils % 0.2; HCT 50.8 % (40.0-50.0); HGB 17.6 g/dL (13.5-17.5); Immature Grans % 0.2; Lymphocytes % 5.7; MCH 28.8 pg (27.0-33.0); MCHC 34.6 % (32.0-36.0); Monocytes % 5.6; Neutrophils % 86.3; Nucleated RBC 0 %; Platelet Count 304 10^3/uL (130-400); RBC 6.12 10^6/uL (4.36-5.78); RDW-SD 36.5 fL; WBC 13.28 10^3/uL (4.4-10.8)
[2022-01-24 15:42] LABS: ALT 56 U/L (16-63); AST 30 U/L (15-37); Albumin 4.2 g/dL (3.4-5.0); Alkaline Phosphatase 122 U/L (46-116); Anion Gap 10.2 mmol/L (3-11); BUN 13 mg/dL (7-18); Bilirubin, Total 0.6 mg/dL (0.2-1.0); CO2 26.8 mmol/L (21.0-32.0); CREATININE 0.8 mg/dL (0.70-1.30); Calcium 9.1 mg/dL (8.5-10.1); Chloride 104 mmol/L (98-107); Glucose 118 mg/dL (74-106); Lipase 54 U/L (73-393); Potassium 4.1 mmol/L (3.5-5.1); Sodium 141 mmol/L (136-145); Total Protein 8.6 g/dL (6.4-8.2)
[2022-01-24] MEDS: Omnipaque 350 MG/ML 100 ML BTL IJ (15:52)
--- NOTE | 2022-01-24 15:53 | DI.CT_ITS ---
Exam(s) CT ABDOMEN PELVIS W EXAM: CT ABDOMEN PELVIS W CLINICAL HISTORY: diffuse abd pain, worse in RLQ/LLQ/epigastric. TECHNIQUE: Imaging Protocol: Axial computed tomography images with coronal and sagittal reformatted images were created and reviewed CONTRAST MATERIAL: Intravenous: Omnipaque 100cc Oral: None COMPARISON: US US ABDOMEN LIMITED from 01/24/2022 FINDINGS: VISUALIZED LUNG BASES: No nodules nor pleural effusions evident. ABDOMEN: There is no ascites. LIVER: Liver is hypodense implying steatosis. However, there are no discrete focal hepatic lesions n or dilatation of intrahepatic ducts. GALLBLADDER/BILIARY: No obvious gallbladder pathology. CBD is not dilated. PANCREAS: No evidence of pancreatic mass nor dilatation of the pancreatic duct. SPLEEN: Spleen size upper normal. No splenic lesions. Splenic and portal veins are patent. ADRENALS: There are no significant adrenal masses. KIDNEYS:No cysts evident. No solid renal masses. No calculi nor hydronephrosis.. ABDOMINAL AORTA: Abdominal aorta is not enlarged. LYMPH NODES:There is no retroperitoneal nor paraaortic adenopathy. ABDOMINAL WALL: No evidence of significant anterior abdominal wall nor inguinal hernia. GI: There is no evidence of bowel obstruction, free air, nor abscess. PELVIS: GI: No evidence of appendicitis.No evidence of sigmoid diverticulitis. LYMPH NODES: There is no intrapelvic nor inguinal adenopathy. REPRODUCTIVE: Prostate size normal. Seminal vesicles unremarkable. URINARY BLADDER: Unremarkable. OSSEOUS: No significant osseous lesions. IMPRESSION: 1. No acute findings in the abdomen and pelvis. 2. Hepatic steatosis but no discrete focal hepatic lesions. 3. No evidence of appendicitis, diverticulitis, nor cholecystitis. 4. No bowel obstruction. No ascites. RADIATION DOSE DELIVERED: 2,202.22mGy.cm Total DLP DATA REPOSITORY: All CT scans at this facility are submitted to the National Radiology Data Registry (NRDR) Dose Index Registry (DIR) with the [employer] ([employer]). RADIATION OPTIMIZATION: All CT scans at this facility use at least one of these dose optimization te chniques: automated exposure control; mA and/or kV adjustment per patient size (includes targeted exa ms where dose is matched to clinical indication); or iterative reconstruction.
[2022-01-24] MEDS: Ketorolac 30 MG/ML VIAL IVP (15:55)
[2022-01-24] MEDS: Normal Saline 1,000 ML 1000 ML IV (15:55)
[2022-01-24] MEDS: Ondansetron 4 MG/2 ML VIAL IVP (15:56)
[2022-01-24] MEDS: Famotidine 20 MG/2 ML VIAL IVP (16:40)
[2022-01-24] MEDS: Ondansetron O.D.T. 4 MG TABEF, 3 TABS/BTL PO (18:21)
[2022-01-24] MEDS: Dicyclomine 20 MG TAB PO (18:21)
[2022-01-24 18:27] VITALS: BP 140/80; PULSE 94; RESP 16; TEMP 36.6; O2SAT 96
[2022-01-26 11:02] LABS: COVID-19 RT-PCR UVMMC Result Negative (Negative)
== END 2022-01-24 18:26 | disposition home or self-care (01) ==
PROVIDERS: Emergency Provider Physician Assistant; PCP Nurse Practitioner Family
DX: R10.11 Right upper quadrant pain (principal); R11.2 Nausea with vomiting, unspecified; R10.12 Left upper quadrant pain; Z20.822 Contact with and (suspected) exposure to COVID-19; R00.0 Tachycardia, unspecified
CPT/HCPCS: 36415; 80053; 83690; 96361; 96374; 96375; 99284; 99285; U0003; 74177; 76705; 85025; J1885; J2405; J3490

== ENCOUNTER 2022-05-23 16:23 | Outpatient (REF) | payer SELFPAY ==
[2022-05-23 16:59] LABS: ALT 46 U/L (16-63); AST 28 U/L (15-37); Albumin 4.2 g/dL (3.4-5.0); Alkaline Phosphatase 107 U/L (46-116); BUN 11 mg/dL (7-18); Bilirubin, Total 0.5 mg/dL (0.2-1.0); CREATININE 0.7 mg/dL (0.70-1.30); Calcium 9.5 mg/dL (8.5-10.1); Chloride 104 mmol/L (98-107); Glucose 86 mg/dL (74-106); Potassium 4.1 mmol/L (3.5-5.1); Sodium 141 mmol/L (136-145)
== END 2022-05-23 16:24 | disposition home or self-care (01) ==
LOC: LBN 16:23
PROVIDERS: PCP Nurse Practitioner Family; Visit Provider Physician Assistant Medical
DX: U07.1 COVID-19 (principal)
CPT/HCPCS: 80053

== ENCOUNTER 2025-08-25 14:31 | Outpatient (REF) | payer SELFPAY ==
[2025-08-25 15:07] LABS: Abs Immature Grans 0.02 10^3/uL (0.0-0.06); HCT 47.0 % (40.0-50.0); HGB 16.2 g/dL (13.5-17.5); Immature Grans % 0.2 %; MCH 28.5 pg (27.0-33.0); MCHC 34.5 % (32.0-36.0); MCV 83 fL (80-95); MPV 10.6 fL (8.0-11.0); Platelet Count 316 10^3/uL (130-400); RBC 5.69 10^6/uL (4.36-5.78); RDW 12.3 % (11.8-14.1); RDW-SD 37.2 fL; WBC 8.31 10^3/uL (4.4-10.8)
[2025-08-25 15:38] LABS: ALT 55 U/L (16-63); AST 23 U/L (15-37); Albumin 3.8 g/dL (3.4-5.0); Alkaline Phosphatase 108 U/L (46-116); Anion Gap 8.5 mmol/L (3-11); BUN 10 mg/dL (7-18); Bilirubin, Total 0.3 mg/dL (0.2-1.0); CO2 29.5 mmol/L (21.0-32.0); Calcium 9.2 mg/dL (8.5-10.1); Chloride 104 mmol/L (98-107); Estimated GFR 129.52 (mL/min/1.73m2); Glucose 104 mg/dL (74-106); Lipase 30 U/L (<78); Potassium 4.1 mmol/L (3.5-5.1); Sodium 142 mmol/L (136-145); Total Protein 7.6 g/dL (6.4-8.2)
== END 2025-08-25 14:32 | disposition home or self-care (01) ==
LOC: LBN 14:31
PROVIDERS: PCP Nurse Practitioner Family; Visit Provider Physician Assistant Medical
DX: R10.84 Generalized abdominal pain (principal)
CPT/HCPCS: 80053; 83690; 85025